=== PATIENT | male | born 1930 | race Hispanic/Latino ===

== ENCOUNTER → 2018-09-29 | Outpatient (CLI) | payer OTHER ==
[~2018-09-29] MED LIST: CARB-39 PO; GABA-529 PO; HYDR-2132 PO; LEVO50TA11 PO; OXYB5TAB10 PO; RIVA4.6T TD; TAMS0.4C32 PO
== END | disposition home or self-care (01) ==
LOC: RAH 13:56
PROVIDERS: ATTEND Family Medicine
DX: R05 Cough (principal)
CPT/HCPCS: 71046

== ENCOUNTER → 2019-11-04 | Outpatient (CLI) | payer OTHER ==
[~2019-11-04] MED LIST changes: -OXYB5TAB10 PO; +OXYB5TAB15 PO
== END | disposition home or self-care (01) ==
LOC: RAH 10:00
PROVIDERS: ATTEND Psychiatry & Neurology Neurology
DX: I67.82 Cerebral ischemia (principal); G31.1 Senile degeneration of brain, not elsewhere classified; G20 Parkinson's disease
CPT/HCPCS: 70450

== ENCOUNTER → 2020-02-25 | Outpatient (CLI) | payer OTHER ==
[~2020-02-25] MED LIST changes: +AMLO2.5T4 PO; +CARB1TAB20 PO; +ERGO400T7 PO; +FLUD0.1T2 PO; +OXYB10TA30 PO; +SERT25TA5 PO; +SERT50TA12 PO
== END | disposition home or self-care (01) ==
LOC: RAH 10:00
PROVIDERS: ATTEND Physical Medicine & Rehabilitation
DX: M47.812 Spondylosis without myelopathy or radiculopathy, cervical region (principal); M50.221 Other cervical disc displacement at C4-C5 level; M50.222 Other cervical disc displacement at C5-C6 level; M48.02 Spinal stenosis, cervical region
CPT/HCPCS: 72141

== ENCOUNTER → 2020-04-06 | Outpatient (CLI) | payer OTHER ==
[~2020-04-06] MED LIST changes: +ARFO15VI3 IH; +BUDE0.5A3 IH; -CARB-39 PO; -GABA-529 PO; -HYDR-2132 PO; -LEVO50TA11 PO; -OXYB5TAB15 PO; +PRED20B PO; -SERT25TA5 PO; +TIOT4MIS5 IH
== END | disposition home or self-care (01) ==
LOC: RAH 14:08
PROVIDERS: ATTEND Physical Medicine & Rehabilitation
DX: M40.294 Other kyphosis, thoracic region (principal); G96.191 Perineural cyst
CPT/HCPCS: 72146

== ENCOUNTER → 2020-05-04 | Outpatient (CLI) | payer MEDICARE | END | disposition home or self-care (01) | LOC: RAH 13:20 | PROVIDERS: ATTEND Neurological Surgery | DX: G91.2 (Idiopathic) normal pressure hydrocephalus (principal); G31.9 Degenerative disease of nervous system, unspecified; R53.1 Weakness; R32 Unspecified urinary incontinence | CPT/HCPCS: 70450 ==